=== PATIENT | male | born 1950 | race Caucasian/White ===

== ENCOUNTER 2017-05-09 19:30 | Emergency (ER) | payer OTHER ==
[~2017-05-09] VITALS: Ht 152.4 cm; Wt 59.5 kg
[~2017-05-09 19:30] MED LIST: ADVAIR HFA120 INHALA IH; AUGMENTIN875 MG PO; LEVAQUIN500 MG PO; NAPROSYN500 MG PO; PERCOCET 5/31 TABLET PO; PREDNISONE10 MG PO; PREDNISONE20 MG PO; SPIRIVA RESPIMAT4 GM IH; Tums,OsCal PO; ULTRAM50 MG PO
[2017-05-09 22:18] VITALS: BP 152/79
== END 2017-05-09 22:18 | disposition home or self-care (01) ==
LOC: EXP 19:30 → EME 19:30 → EXP 22:18
DX: H10.9 Unspecified conjunctivitis (principal); J44.9 Chronic obstructive pulmonary disease, unspecified; I10 Essential (primary) hypertension; F17.200 Nicotine dependence, unspecified, uncomplicated
CPT/HCPCS: 99281; 99283